=== PATIENT | female | born 1990 | race Caucasian/White ===

== ENCOUNTER 2017-04-21 13:13 | Outpatient (CLI) | payer OTHER ==
[~2017-04-21] VITALS: Ht 162.6 cm; Wt 65.0 kg
[2017-04-21 13:30] VITALS: BP 123/82
[2017-04-21 13:47] VITALS: BP 122/80
[2017-04-21 13:55] VITALS: BP 114/80
[2017-04-21] MEDS ORDERED: PRED5SOL10 PO (14:00)
[2017-04-21] MEDS ORDERED: MULTTAB20 PO (14:00)
[2017-04-21] MEDS ORDERED: TUMS500C PO (14:00)
[2017-04-21] MEDS ORDERED: COLA100C5 PO (14:00)
== END 2017-04-21 14:15 | disposition home or self-care (01) ==
LOC: M LDO 13:13
PROVIDERS: ATTEND Student in an Organized Health Care Education/Training Program
DX: O26.893 Other specified pregnancy related conditions, third trimester (principal); Z3A.38 38 weeks gestation of pregnancy; R03.0 Elevated blood-pressure reading, without diagnosis of hypertension; Z88.0 Allergy status to penicillin; Z88.2 Allergy status to sulfonamides

== ENCOUNTER 2017-04-23 17:58 | Outpatient (CLI) | payer OTHER ==
[2017-04-23] VITALS (14 sets, daily range): BP systolic 132–142; BP diastolic 81–103
[~2017-04-23] VITALS: Ht 162.6 cm; Wt 66.0 kg
[~2017-04-23 17:58] MED LIST: COLA100C5 PO; MULTTAB20 PO; PRED5SOL10 PO; TUMS500C PO
[2017-04-23 20:01] LABS: MEAN CORPUSCULAR HEMOGLOBIN 33.2 pg (27.0-33.0); MEAN CORPUSCULAR HGB CONC 35.5 g/dl (32.0-36.5); MEAN CORPUSCULAR VOLUME 93.6 fl (80.0-96.0); RED CELL DISTRIBUTION WIDTH 12.5 % (11.5-14.5); WHITE BLOOD COUNT 11.5 K/mm3 (4.0-10.0)
[2017-04-23 20:12] LABS: ALBUMIN 2.9 GM/DL (3.2-5.2); ALBUMIN/GLOBULIN RATIO 0.73 (1.00-1.93); ALKALINE PHOSPHATASE 202 U/L (45-117); ALT/SGPT 18 U/L (12-78); ANION GAP 11 MEQ/L (8-16); AST/SGOT 15 U/L (15-37); BILIRUBIN,TOTAL 0.2 MG/DL (0.2-1.0); BLOOD UREA NITROGEN 6 MG/DL (7-18); CALCIUM LEVEL 9.1 MG/DL (8.5-10.1); CARBON DIOXIDE LEVEL 24 MEQ/L (21-32); CHLORIDE LEVEL 103 MEQ/L (98-107); CREATININE FOR GFR 0.67 MG/DL (0.55-1.02); GLOMERULAR FILTRATION RATE > 60.0 (>60); GLUCOSE, FASTING 126 MG/DL (70-105); POTASSIUM SERUM 3.6 MEQ/L (3.5-5.1); SODIUM LEVEL 138 MEQ/L (136-145); TOTAL PROTEIN 6.9 GM/DL (6.4-8.2); URIC ACID 5.4 MG/DL (2.6-6.0)
[2017-04-24] MEDS ORDERED: PRED10TA2 PO (09:08)
[2017-04-24] MEDS ORDERED: ACET50TA PO (09:08)
== END 2017-04-23 21:35 | disposition home or self-care (01) ==
LOC: M LDO 17:58
PROVIDERS: ATTEND Obstetrics & Gynecology
DX: O47.1 False labor at or after 37 completed weeks of gestation (principal); Z3A.39 39 weeks gestation of pregnancy

== ENCOUNTER 2017-04-24 08:45 | Inpatient (IN) | payer OTHER ==
[2017-04-24] VITALS (25 sets, daily range): BP systolic 108–167; BP diastolic 68–103
[~2017-04-24] VITALS: Ht 163.8 cm; Wt 65.0 kg
[2017-04-24] MEDS ORDERED: LR 1,000 ML IV SCH (08:48)
[2017-04-24] MEDS ORDERED: * PENDING VANCOMYCIN ENTRY XX SCH (09:00)
[2017-04-24] MEDS ORDERED: PRED10TA2 PO (09:08)
[2017-04-24] MEDS ORDERED: ACET50TA PO (09:08)
[2017-04-24] MEDS ORDERED: OXYTOCIN DRIP 30 UNITS in APPROPRIATE DILUENT 1 EA IV SCH (09:30)
[2017-04-24 10:11] LABS: MEAN CORPUSCULAR HEMOGLOBIN 31.9 pg (27.0-33.0); MEAN CORPUSCULAR HGB CONC 34.8 g/dl (32.0-36.5); MEAN CORPUSCULAR VOLUME 91.6 fl (80.0-96.0); RED CELL DISTRIBUTION WIDTH 12.7 % (11.5-14.5); WHITE BLOOD COUNT 13.4 K/mm3 (4.0-10.0)
[2017-04-24] MEDS ORDERED: NALBUPHINE HCL 10 MG/ML AMP (J2300) IV ONE (13:00)
[2017-04-24] MEDS ORDERED: NALBUPHINE HCL 10 MG/ML AMP (J2300) IM ONE (13:00)
[2017-04-24] MEDS ORDERED: VANCOMYCIN HCL 1,000 MG, VIAL MATE ADAPTER 1 EACH in D5W 250 ML IV SCH (17:00)
[2017-04-24] MEDS ORDERED: METHYLERGONOVINE MALEATE 0.2 MG TAB PO PRN (18:45)
[2017-04-24] MEDS ORDERED: DIBUCAINE 1% OINTMENT 30GM TOP PRN (18:45)
[2017-04-24] MEDS ORDERED: RHOGAM 300 MCG (1500 IU) INJ (J2790) IM SCH (18:45)
[2017-04-24] MEDS: IBUPROFEN 800 MG TAB PO PRN (21:05)
[2017-04-24] MEDS: DOCUSATE SODIUM 100 MG CAP PO PRN (21:51)
[2017-04-25] MEDS: ACETAMINOPHEN 500 MG TAB PO PRN ×2 (03:24→13:31)
[2017-04-25 05:36] VITALS: BP 121/74
[2017-04-25] MEDS: IBUPROFEN 800 MG TAB PO PRN ×2 (08:58→16:55)
[2017-04-25] MEDS: PRENATAL VITAMINS CHEWABLE TABLET PO SCH (09:00)
[2017-04-25 16:00] VITALS: BP 125/87
--- NOTE | 2017-04-25 16:00 | IPN ---
DATE: 04/25/2017 This lady and requested circumcision of their male . After discussing the risks and benefits of circumcision, the medical and nonmedical indications, penile block and aftercare, they expressed understanding of the risks and benefits, signed and witnessed consent form. We await the clearance by the cut out machine operator.
--- NOTE | 2017-04-25 16:05 | IPN ---
DATE: 04/25/2017 NOTE: This lady is a 27-year-old 1, now para 1, who was admitted for gestational hypertension, induction of labor, had a spontaneous vaginal delivery of male 7 pounds 7 ounces, scores of 8 and 9 at one and five minutes respectively. Her hemoglobin was 14.9, hematocrit 42.9 and platelets are 215. Her [facility] protocol labs were normal and she fit the criteria of ongoing gestational hypertension. Her vital signs today: Her blood pressure is 121/74, respirations 18, pulse 78 and temperature 98.6. We discussed phlebitis, cystitis, mastitis, metritis and cellulitis, diet, exercise, pain management, perineal, breast and wound care. The patient is planning on discharge tomorrow morning. We are planning on circumcising her male infant after clearance by the wood cut engraver. The patient is breast-feeding and doing well and medications will be given at discharge. She has a six-week checkup.
[2017-04-25 18:03] VITALS: BP 121/75
[2017-04-25 19:53] VITALS: BP 121/75
[2017-04-26] MEDS: IBUPROFEN 800 MG TAB PO PRN ×3 (02:00→20:31)
[2017-04-26 05:42] VITALS: BP 123/87
[2017-04-26] MEDS ORDERED: IBUP-1114 PO (08:16)
[2017-04-26] MEDS: PRENATAL VITAMINS CHEWABLE TABLET PO SCH (09:23)
[2017-04-26] MEDS: ACETAMINOPHEN 500 MG TAB PO PRN (09:24)
[2017-04-26] MEDS: DOCUSATE SODIUM 100 MG CAP PO PRN (20:30)
== END 2017-04-26 21:45 | disposition home or self-care (01) | DRG 775 ==
LOC: M LDI 08:45 → M OBS 20:38
PROVIDERS: ADMIT Advanced Practice Midwife; ATTEND Advanced Practice Midwife
PROC: 10E0XZZ Delivery of Products of Conception, External Approach (ICD-10-PCS; principal; 2017-04-24)
PROC: 3E033VJ Introduction of Other Hormone into Peripheral Vein, Percutaneous Approach (ICD-10-PCS; 2017-04-24)
PROC: 3E0234Z Introduction of Serum, Toxoid and Vaccine into Muscle, Percutaneous Approach (ICD-10-PCS; 2017-04-24)
DX: O13.4 Gestational [pregnancy-induced] hypertension without significant proteinuria, complicating childbirth (principal); O36.0930 Maternal care for other rhesus isoimmunization, third trimester, not applicable or unspecified; O99.824 Streptococcus B carrier state complicating childbirth; Z3A.39 39 weeks gestation of pregnancy; O69.82X0 Labor and delivery complicated by other cord entanglement, without compression, not applicable or unspecified; Z37.0 Single live birth; Z67.11 Type A blood, Rh negative

== ENCOUNTER 2017-04-28 22:39 | Emergency (ER) | payer OTHER ==
[~2017-04-28] VITALS: Ht 162.6 cm; Wt 64.9 kg
[~2017-04-28 22:39] MED LIST changes: +ACET50TA PO; +IBUP-1114 PO; +PRED10TA2 PO
[2017-04-28 23:14] LABS: MICROSCOPIC INDICATED? MAN YES (NO)
[2017-04-28 23:25] LABS: RBC, URINE 31 /hpf (0-3); SQUAMOUS EPITHELIAL CELL URINE SMALL AMOUNT /hpf (SMALL AMT); WBC, URINE 29 /hpf (0-3)
[2017-04-28 23:26] LABS: BACTERIA, URINE SMALL AMOUNT; HYALINE CAST, URINE NONE SEEN /lpf (0-1)
[2017-04-28 23:27] LABS: MICROSCOPIC EXAM PERFORMED
[2017-04-28 23:36] VITALS: BP 145/103
[2017-04-28] MEDS ORDERED: KEFL500C17 PO (23:40)
[2017-04-28] MEDS ORDERED: CEPHALEXIN 500 MG CAP PO ONE (23:45)
== END 2017-04-29 00:17 | disposition home or self-care (01) ==
LOC: M ED 22:39
DX: N39.0 Urinary tract infection, site not specified (principal)

== ENCOUNTER 2017-05-05 17:14 | Emergency (ER) | payer OTHER ==
[~2017-05-05] VITALS: Ht 162.6 cm; Wt 60.8 kg
[~2017-05-05 17:14] MED LIST changes: +KEFL500C17 PO
[2017-05-05] MEDS ORDERED: NS 1,000 ML IV ONE (18:15)
[2017-05-05 18:32] LABS: BASO % 0.6 % (0.0-1.0); EOS % 2.3 % (0.0-3.0); LYMPH % 48.9 % (24.0-44.0); MEAN CORPUSCULAR HEMOGLOBIN 31.7 pg (27.0-33.0); MEAN CORPUSCULAR HGB CONC 34.7 g/dl (32.0-36.5); MEAN CORPUSCULAR VOLUME 91.3 fl (80.0-96.0); NEUTROPHILS % 41.2 % (36.0-66.0); PLATELET COUNT, AUTOMATED 296 k/mm3 (150-450); RED CELL DISTRIBUTION WIDTH 12.4 % (11.5-14.5); WHITE BLOOD COUNT 8.2 K/mm3 (4.0-10.0)
[2017-05-05 18:33] LABS: EOS # 0.2 K/mm3 (0.0-0.50); LARGE UNSTAINED CELL # 0.2 K/mm3 (0.0-0.4); LARGE UNSTAINED CELL % 2.9 % (0.0-4.0); LYMPH # 4.3 K/mm3 (1.5-6.5); MONO # 0.3 K/mm3 (0.0-0.8); NEUTROPHILS # 3.4 K/mm3 (1.8-7.7)
[2017-05-05 18:34] LABS: INR 0.91
[2017-05-05 18:50] LABS: ALBUMIN 3.7 GM/DL (3.2-5.2); ALBUMIN/GLOBULIN RATIO 0.95 (1.00-1.93); ALKALINE PHOSPHATASE 131 U/L (45-117); ALT/SGPT 30 U/L (12-78); ANION GAP 8 MEQ/L (8-16); AST/SGOT 21 U/L (15-37); BILIRUBIN,DIRECT < 0.1 MG/DL (0.0-0.2); BILIRUBIN,TOTAL 0.3 MG/DL (0.2-1.0); BLOOD UREA NITROGEN 14 MG/DL (7-18); CALCIUM LEVEL 9.1 MG/DL (8.5-10.1); CARBON DIOXIDE LEVEL 25 MEQ/L (21-32); CHLORIDE LEVEL 107 MEQ/L (98-107); CREATININE FOR GFR 0.72 MG/DL (0.55-1.02); FREE T4 1.05 NG/DL (0.76-1.46); GLOMERULAR FILTRATION RATE > 60.0 (>60); GLUCOSE, FASTING 95 MG/DL (70-105); SODIUM LEVEL 140 MEQ/L (136-145); TOTAL PROTEIN 7.6 GM/DL (6.4-8.2)
--- NOTE | 2017-05-05 18:53 | REP ---
PA and lateral chest: There are no comparisons. The lung stallworth are clear. Cardiac size is normal. The ida, mediastinum, and bony thorax are unremarkable. There are dense breast shadows superimposed bilaterally. Impression: Negative PA and lateral chest. Signed by Femi Azar MD 05/05/2017 06:44 P
[2017-05-05] MEDS ORDERED: ISOVUE-370 76% 100ML VIAL (Q9967) As Ordered ONE (19:00)
--- NOTE | 2017-05-05 19:08 | ECGEPIP ---
Stationary ECG Study [facility] - ED Test Date: 2017-05-05 Pat Name: CONNER MARQUEZ Department: Room: - Gender: F [employer] Weigher: ct : 1990 Requested By: Shoshana Cooley Order Number: [id number] Reading MD: Shoshana Cooley Measurements Intervals [place] Rate: 82 P: 56 NE: 141 QRS: 9 QRSD: 84 T: 29 QT: 364 QTc: 427 Interpretive Statements SINUS RHYTHM LEFT ATRIAL ENLARGEMENT NSTTW ABNORMALITY INCREASED RATE 09/21/16 Electronically Signed On 05-05-2017 19:07:45 EDT by Shoshana Cooley
[2017-05-05 19:56] VITALS: BP 138/90
--- NOTE | 2017-05-05 20:00 | REPUSA ---
CT angiogram of the chest Clinical statement: Chest pain and shortness of breath. Technique: Multiple axial CT images were obtained from the thoracic inlet through the upper abdomen a fter a bolus administration of nonionic intravenous contrast. Coronal and sagittal reconstructions we re also obtained. No comparison is available. Findings: The pulmonary arteries are well-opacified with contrast, with no intraluminal filling defec ts to suggest embolism. The thoracic aorta is unremarkable. Thyroid gland is within normal limits. Th ere is no thoracic lymphadenopathy. There are no pericardial or pleural effusions. The lungs are marito r. Limited imaging of the upper abdomen is unremarkable. There are no suspicious osseous lesions. Impression: Unremarkable CT examination of the chest. No evidence of pulmonary embolism.
== END 2017-05-05 20:18 | disposition home or self-care (01) ==
LOC: M ED 17:14
DX: R09.1 Pleurisy (principal)
CPT/HCPCS: 36415; 71020; 71275; 80048; 80076; 82550; 82553; 84439; 84443; 85025; 85610; 85730; 93005; 99284; Q9967

== ENCOUNTER 2017-06-29 13:41 | Emergency (ER) | payer OTHER ==
[~2017-06-29] VITALS: Ht 162.6 cm; Wt 54.5 kg
[2017-06-29] MEDS ORDERED: ZOLO25TA PO (13:47)
[2017-06-29] MEDS ORDERED: birth control PB (13:47)
[2017-06-29 15:00] VITALS: BP 123/67
--- NOTE | 2017-06-29 15:35 | REP ---
Clinical: Left lower extremity pain . Technique: Varghese scale and color Doppler evaluation using linear high frequency transducer. Findings: Ultrasound examination of the left lower extremity deep venous structures from the common femoral vein to the popliteal vein demonstrates normal compressibility flow and wave patterns in response to respiration and augmentation. There is no evidence for deep venous thrombosis. Impression: No evidence for deep venous thrombosis. Signed by Seth Latham MD 06/29/2017 03:26 P
== END 2017-06-29 15:00 | disposition home or self-care (01) ==
LOC: M ED 13:41
DX: M79.652 Pain in left thigh (principal); Z79.3 Long term (current) use of hormonal contraceptives; Z79.899 Other long term (current) drug therapy; Z88.0 Allergy status to penicillin; Z88.1 Allergy status to other antibiotic agents; Z88.2 Allergy status to sulfonamides

== ENCOUNTER 2018-09-26 04:00 | Emergency (ER) | payer OTHER ==
[2018-09-26] MEDS: GI COCKTAIL 50ML BTL(HYOSCYAMINE/MAALOX/LIDOCAINE VISCOUS)(1:3:1) PO (04:57)
[2018-09-26] MEDS: PANTOPRAZOLE 40MG TAB (PROTONIX) PO (04:57)
== END 2018-09-26 05:11 | disposition home or self-care (01) ==
LOC: M ED 04:00
DX: K21.9 Gastro-esophageal reflux disease without esophagitis (principal); F32.9 Major depressive disorder, single episode, unspecified; F41.9 Anxiety disorder, unspecified; Z79.899 Other long term (current) drug therapy; Z79.3 Long term (current) use of hormonal contraceptives; Z88.0 Allergy status to penicillin; Z88.2 Allergy status to sulfonamides
CPT/HCPCS: 99282